=== PATIENT | male | born 1950 | race Caucasian/White ===

== ENCOUNTER 2018-07-20 11:15 | Emergency (ER) | payer MEDICARE, BC ==
[2018-07-20] MEDS ORDERED: Lidocaine 2% Jelly 5 ML Tube ONE (11:50)
[2018-07-20] MEDS ORDERED: Lidocaine 2% Jelly 5 ML Tube TOP ONE ×2 (12:01→12:17)
--- NOTE | 2018-07-20 12:17 | EDM.PDOC ---
ED HPI GENERAL MEDICAL PROBLEM - General Chief Complaint: General Stated Complaint: hemorrhoid Time Seen by Provider: 07/20/18 11:56 Source of Information: Reports: Patient History Limitations: Reports: No Limitations - History of Present Illness INITIAL COMMENTS - FREE TEXT/NARRATIVE: Morgan is a pleasant 67 year old male who presents to the ED with c/o painful hemorrhoid. He reports he first noticed it on Saturday. He does feel it has gotten larger since then. Reports that today it started to bleed and the pain has gotten worse. He reports he has been using preparation H since Saturday without relief. Denies any bloody stools. Reports his last BM was yesterday. He denies any excessive straining with stooling. Reports his bowel movements are usually very regular. Does report he occassionally will get hemorrhoids, but preparation H usually gets rid of them. Denies any other issues. Rectal Pain Score (Numeric/FACES): 8 - Related Data Allergies Allergy/AdvReac Type Severity Reaction Status Date / Time amoxicillin Allergy Rash Verified 07/20/18 11:19 Home Meds: Home Meds Aspirin [Halfprin] 81 mg PO DAILY 10/22/16 [History] Calcium Carbonate [Calcium] 600 mg PO DAILY 10/22/16 [History] Cholecalciferol (Vitamin D3) [Vitamin D] 1 tab PO DAILY 10/22/16 [History] Fluticasone Propionate 2 spray NASBOTH DAILY 10/22/16 [History] Levothyroxine Sodium 100 mcg PO DAILY 10/22/16 [History] Magnesium Oxide [Magnesium] 500 mg PO DAILY 10/22/16 [History] Multivitamin [Multivitamins] 1 tab PO DAILY 10/22/16 [History] Naproxen Sodium [Aleve] 440 mg PO DAILY PRN 10/22/16 [History] [place]-3 Fatty Acids [Fish Oil] 1,200 mg PO DAILY 10/22/16 [History] Pantoprazole Sodium 40 mg PO DAILY 10/22/16 [History] Red Yeast Rice 1,200 mg PO DAILY 10/22/16 [History] Sucralfate 1 gm PO TID 10/22/16 [History] Loratadine 10 mg PO DAILY PRN 09/24/17 [History] Hydrocortisone [Hydrocortisone 2.5% Crm] 1 gm TOP BID 7 Days #1 tube 07/20/18 [ Rx] Lidocaine 5% 35.44 gm .XX Q4H PRN #1 tube 07/20/18 [Rx] Past Medical History HEENT History: Reports: Impaired Vision Cardiovascular History: Reports: High Cholesterol Gastrointestinal History: Reports: GERD Endocrine/Metabolic History: Reports: Hypoparathyroidism - Past Surgical History HEENT Surgical History: Reports: Tonsillectomy GI Surgical History: Reports: Colonoscopy Musculoskeletal Surgical History: Reports: Other (See Below) Other Musculoskeletal Surgeries/Procedures:: plate in head Social & Family History - Family History Family Medical History: Noncontributory - Tobacco Use Smoking Status *Q: Never Smoker - Caffeine Use Caffeine Use: Reports: Coffee - Recreational Drug Use Recreational Drug Use: No ED ROS GENERAL - Review of Systems Review Of Systems: ROS reveals no pertinent complaints other than HPI. ED EXAM, GENERAL - Physical Exam Exam: See Below Exam Limited By: No Limitations General Appearance: Alert, WD/WN, No Apparent Distress Rectal (Males) Exam: Hemorrhoids (large external hemorrhoid, 1.5 cm x 3 cm, thrombosed), Tenderness (of hemorrhoid), Other (small amount of bleeding from hemorrhoid) Psychiatric: Normal Affect, Normal Mood Course - Vital Signs Last Recorded V/S: Last Vital Signs Temp 98.1 F 07/20/18 11:16 Pulse 71 07/20/18 11:16 Resp 16 07/20/18 11:16 BP 185/97 H 07/20/18 12:30 Pulse Ox 97 07/20/18 11:16 - Orders/Labs/Meds Meds: Medications Discontinued Medications Generic Name Dose Route Start Last Admin Trade Name Kaylene PRN Reason Stop Dose Admin Hydrocortisone 0 gm 07/20/18 12:30 07/20/18 12:28 Hydrocortisone 2.5% Crm TOP 1 applic BID TOMMIE Administration Lidocaine HCl 5 ml 07/20/18 12:01 07/20/18 12:02 Xylocaine 2% Jelly TOP 07/20/18 12:02 1 applic ONETIME ONE Administration Lidocaine HCl Confirm 07/20/18 11:50 07/20/18 12:03 Xylocaine 2% Jelly Administered 07/20/18 11:51 Not Given Dose 5 ml .ROUTE .STK-MED ONE Lidocaine HCl 5 ml 07/20/18 12:17 07/20/18 12:21 Xylocaine 2% Jelly TOP 07/20/18 12:18 1 applic ONETIME ONE Administration - Re-Assessments/Exams Free Text/Narrative Re-Assessment/Exam: Lidocaine applied to hemorrhoid. Patient reports some relief of pain. [place]ell, [place] [facility] [place] patient can likely be treated conservatively. If no improvement over next 5-7 days then recommends general surgery consult from primary care provider. Departure - Departure Time of Disposition: 12:30 Disposition: Home, Self-Care 01 Condition: Good Clinical Impression: External hemorrhoid, thrombosed - Discharge Information *PRESCRIPTION DRUG MONITORING PROGRAM REVIEWED*: Not Applicable *COPY OF PRESCRIPTION DRUG MONITORING REPORT IN PATIENT VELIA: Not Applicable Prescriptions: Hydrocortisone [Hydrocortisone 2.5% Crm] 1 gm TOP BID 7 Days #1 tube Lidocaine 5% 35.44 gm .XX Q4H PRN #1 tube PRN Reason: Pain Instructions: High-Fiber Diet, Hemorrhoids, [id number] Referrals: Shwetha White PA [Primary Care Provider] - Forms: ED Department Discharge Additional Instructions: Sitz bath twice daily for comfort Apply small amount of Lidocaine gel to affected area every 4 hours as needed for pain Apply small amount of Hydrocortisone cream to affected area twice daily for 7 days Stool softeners daily to prevent constipation Increase fiber intake. Make sure you are drinking adequate amount of water daily. 6-8 glasses of water daily. Avoid straining with bowel movements Moist gentle cleaning following bowel movements Follow up with PCP in 5-7 days if symptoms do not improve, sooner if worsens
[2018-07-20] MEDS ORDERED: Hydrocortisone 2.5% Crm 30 GM Tube TOP SCH (12:30)
== END 2018-07-20 12:41 | disposition home or self-care (01) ==
LOC: CC.ED 11:15
DX: K64.5 Perianal venous thrombosis (principal); K21.9 Gastro-esophageal reflux disease without esophagitis; E20.9 Hypoparathyroidism, unspecified; E78.00 Pure hypercholesterolemia, unspecified; Z88.1 Allergy status to other antibiotic agents; Z79.899 Other long term (current) drug therapy
CPT/HCPCS: 99282; A9270; 99283

== ENCOUNTER 2018-10-24 13:11 | Emergency (ER) | payer MEDICARE, BC ==
[2018-10-24] MEDS: Lidocaine 1% 20 ML MDV ONE (13:49)
[2018-10-24] MEDS: Lidocaine 1% 20 ML MDV INJECT ONE (13:50)
[2018-10-24] MEDS: Bacitracin/Neomycin/Polymyxin B Oint 0.9 GM U/D Packet TOP ONE (14:10)
--- NOTE | 2018-10-24 14:19 | EDM.PDOC ---
ED HPI GENERAL MEDICAL PROBLEM - General Chief Complaint: Laceration Stated Complaint: RT HAND CUT Time Seen by Provider: 10/24/18 13:43 Source of Information: Reports: Patient History Limitations: Reports: No Limitations - History of Present Illness INITIAL COMMENTS - FREE TEXT/NARRATIVE: Morgan is a 68 year old male who presents to the ED with c/o a laceration to his right index finger. Reports he was at [employer] and tried to cut don tag off an item with his knife when it slipped and cut his finger. REports he has full function of finger. Mild numbness surrounding laceration. Reports he was unable to stop the bleeding and figured he needed sutures. No other complaints. Onset: Today, Sudden Onset Date: 10/24/18 Onset Time: 13:00 Duration: Constant Location: Reports: Upper Extremity, Right Quality: Reports: Burning, Sharp Severity: Mild Improves with: Reports: None Worsens with: Reports: Movement Associated Symptoms: Reports: No Other Symptoms Right Finger-Index Pain Score (Numeric/FACES): 2 - Related Data Allergies Allergy/AdvReac Type Severity Reaction Status Date / Time amoxicillin Allergy Rash Verified 10/24/18 13:26 Home Meds: Home Meds Aspirin [Halfprin] 81 mg PO DAILY 10/22/16 [History] Calcium Carbonate [Calcium] 600 mg PO DAILY 10/22/16 [History] Cholecalciferol (Vitamin D3) [Vitamin D] 1 tab PO DAILY 10/22/16 [History] Fluticasone Propionate 2 spray NASBOTH DAILY 10/22/16 [History] Levothyroxine Sodium 100 mcg PO DAILY 10/22/16 [History] Magnesium Oxide [Magnesium] 500 mg PO DAILY 10/22/16 [History] Multivitamin [Multivitamins] 1 tab PO DAILY 10/22/16 [History] Naproxen Sodium [Aleve] 440 mg PO DAILY PRN 10/22/16 [History] [place]-3 Fatty Acids [Fish Oil] 1,200 mg PO DAILY 10/22/16 [History] Pantoprazole Sodium 40 mg PO DAILY 10/22/16 [History] Red Yeast Rice 1,200 mg PO DAILY 10/22/16 [History] Sucralfate 1 gm PO TID 10/22/16 [History] Loratadine 10 mg PO DAILY PRN 09/24/17 [History] Past Medical History HEENT History: Reports: Impaired Vision Cardiovascular History: Reports: High Cholesterol Gastrointestinal History: Reports: GERD Endocrine/Metabolic History: Reports: Hypoparathyroidism - Past Surgical History HEENT Surgical History: Reports: Tonsillectomy GI Surgical History: Reports: Colonoscopy Musculoskeletal Surgical History: Reports: Other (See Below) Other Musculoskeletal Surgeries/Procedures:: plate in head Social & Family History - Family History Family Medical History: Noncontributory - Caffeine Use Caffeine Use: Reports: Coffee ED ROS GENERAL - Review of Systems Review Of Systems: ROS reveals no pertinent complaints other than HPI. ED EXAM, SKIN/RASH Exam: See Below Exam Limited By: No Limitations General Appearance: Alert, WD/WN, No Apparent Distress Peripheral Pulses: 2+: Radial (R) Extremities: Other (2 cm superficial laceration to middle phalanx of right index finger, clean, bleeding controlled) Psychiatric: Normal Affect, Normal Mood Skin: Wound/Incision (2 cm laceration to right middle phalanx of index finger) ED SKIN PROCEDURES - Laceration/Wound Repair Right Digit - 2nd (Index) Lac/Wound length In cm: 2 Appearance: Superficial, Linear, Clean Distal NVT: Neuro & Vascular Intact, No Tendon Injury Anesthetic Type: Local Local Anesthesia - Lidocaine (Xylocaine): 1% Plain Local Anesthetic Volume: 3cc Skin Prep: Providone-Iodine (Betadine) Exploration/Debridement/Repair: Wound Explored, No Foreign Material Found Closed with: Sutures Suture Size: 4-0 # of Sutures: 4 Suture Type: Nylon, Interrupted, Simple Sterile Dressing Applied: Nurse Tetanus Status Addressed: Yes (up to date) Complications: No Progress/Comments: Patient tolerated well. CMS intact following suture closure. Course - Vital Signs Last Recorded V/S: Last Vital Signs Temp 97.9 F 10/24/18 13:20 Pulse 74 10/24/18 13:20 Resp 20 10/24/18 13:20 BP 148/78 H 10/24/18 13:20 Pulse Ox 99 10/24/18 13:20 - Orders/Labs/Meds Meds: Medications Discontinued Medications Generic Name Dose Route Start Last Admin Trade Name Freq PRN Reason Stop Dose Admin Lidocaine HCl Confirm 10/24/18 13:35 10/24/18 13:49 Xylocaine 1% Administered 10/24/18 13:36 Not Given Dose 20 ml .ROUTE .STK-MED ONE Lidocaine HCl 20 ml 10/24/18 13:49 10/24/18 13:50 Xylocaine 1% INJECT 10/24/18 13:50 20 ml ONETIME ONE Administration Neomycin/Polymyxin/Bacitracin 1 each 10/24/18 14:08 10/24/18 14:10 Triple Antibiotic Oint TOP 10/24/18 14:09 1 each ONETIME ONE Administration Departure - Departure Time of Disposition: 14:17 Disposition: Home, Self-Care 01 Condition: Good Clinical Impression: Laceration of finger of right hand Qualifiers: Encounter type: initial encounter Finger: index finger Damage to nail status: without damage Foreign body presence: without foreign body Qualified Code(s): S61.210A - Laceration without foreign body of right index finger without damage to nail, initial encounter - Discharge Information *PRESCRIPTION DRUG MONITORING PROGRAM REVIEWED*: Not Applicable *COPY OF PRESCRIPTION DRUG MONITORING REPORT IN PATIENT VELIA: Not Applicable Instructions: Laceration Care, Adult, [id number] Referrals: Koko Santoyo MD [Primary Care Provider] - Forms: ED Department Discharge Additional Instructions: 1) Keep area clean and dry 2) Keep covered with bandaid upon dressing remove. Neosporin daily with bandaid change. 3) Tylenol or ibuprofen as needed for pain 4) Monitor for s/s of infection (redness, purulent drainage, warmth) 5) Follow up for suture removal in 10 days
== END 2018-10-24 14:25 | disposition home or self-care (01) ==
LOC: SUPCPDRO 13:11 → CC.ED 13:11
DX: S61.210A Laceration without foreign body of right index finger without damage to nail, initial encounter (principal); W26.0XXA Contact with knife, initial encounter; Y93.89 Activity, other specified; Y92.512 Supermarket, store or market as the place of occurrence of the external cause; E78.00 Pure hypercholesterolemia, unspecified; K21.9 Gastro-esophageal reflux disease without esophagitis; E20.9 Hypoparathyroidism, unspecified; Z88.1 Allergy status to other antibiotic agents; Z79.82 Long term (current) use of aspirin; Z79.899 Other long term (current) drug therapy
CPT/HCPCS: 12001; 99282; 99283

== ENCOUNTER 2018-11-02 14:18 | Emergency (ER) | payer MEDICARE, BC ==
[2018-11-02] MEDS ORDERED: Ibuprofen 200 MG Tab PO ONE (14:43)
--- NOTE | 2018-11-02 14:43 | EDM.PDOC ---
ED HPI GENERAL MEDICAL PROBLEM - General Chief Complaint: General Stated Complaint: SCHAFER, chills, sore throat, body aches Time Seen by Provider: 11/02/18 14:25 Source of Information: Reports: Patient - History of Present Illness INITIAL COMMENTS - FREE TEXT/NARRATIVE: patient is a 68 year old male who has cough nonproductive/ congestion / and body aches/ no fever/ no chills no illcontacts Onset: Today, Gradual Onset Date: 10/30/18 Onset Time: 07:00 Duration: Getting Worse Location: Reports: Generalized Quality: Reports: Ache, Dull Severity: Mild Improves with: Reports: None Worsens with: Reports: None Throat Pain Score (Numeric/FACES): 8 Headache Pain Score (Numeric/FACES): 5 - Related Data Allergies Allergy/AdvReac Type Severity Reaction Status Date / Time amoxicillin Allergy Rash Verified 11/02/18 14:21 Home Meds: Home Meds Aspirin [Halfprin] 81 mg PO DAILY 10/22/16 [History] Calcium Carbonate [Calcium] 600 mg PO DAILY 10/22/16 [History] Cholecalciferol (Vitamin D3) [Vitamin D] 1 tab PO DAILY 10/22/16 [History] Fluticasone Propionate 2 spray NASBOTH DAILY 10/22/16 [History] Levothyroxine Sodium 100 mcg PO DAILY 10/22/16 [History] Magnesium Oxide [Magnesium] 500 mg PO DAILY 10/22/16 [History] Multivitamin [Multivitamins] 1 tab PO DAILY 10/22/16 [History] Naproxen Sodium [Aleve] 440 mg PO DAILY PRN 10/22/16 [History] [place]-3 Fatty Acids [Fish Oil] 1,200 mg PO DAILY 10/22/16 [History] Pantoprazole Sodium 40 mg PO DAILY 10/22/16 [History] Red Yeast Rice 1,200 mg PO DAILY 10/22/16 [History] Sucralfate 1 gm PO TID 10/22/16 [History] Loratadine 10 mg PO DAILY PRN 09/24/17 [History] D-Methorphan Hb/P-Epd HCl/Bpm [Bromfed DM Cough] 7.5 ml PO Q6H PRN #120 syrup [Rx] Tamsulosin HCl [Flomax] 0.4 mg PO DAILY 11/02/18 [History] predniSONE [Prednisone] 20 mg PO DAILY 5 Days #5 tablet 11/02/18 [Rx] Past Medical History HEENT History: Reports: Impaired Vision Cardiovascular History: Reports: High Cholesterol Gastrointestinal History: Reports: GERD Endocrine/Metabolic History: Reports: Hypoparathyroidism - Past Surgical History HEENT Surgical History: Reports: Tonsillectomy GI Surgical History: Reports: Colonoscopy Musculoskeletal Surgical History: Reports: Other (See Below) Other Musculoskeletal Surgeries/Procedures:: plate in head Social & Family History - Family History Family Medical History: Noncontributory - Tobacco Use Smoking Status *Q: Current Every Day Smoker Years of Tobacco use: 20 Packs/Tins Daily: 0.2 - Caffeine Use Caffeine Use: Reports: Coffee ED ROS GENERAL - Review of Systems Review Of Systems: See Below Constitutional: Reports: Fever, Malaise HEENT: Reports: Throat Pain Respiratory: Reports: Cough Cardiovascular: Reports: No Symptoms Musculoskeletal: Reports: No Symptoms Skin: Reports: No Symptoms Neurological: Reports: No Symptoms ED EXAM, GENERAL - Physical Exam Exam: See Below Exam Limited By: No Limitations General Appearance: Alert, WD/WN Ears: Normal External Exam, Normal Canal, Normal TMs Nose: Normal Inspection Throat/Mouth: Normal Inspection Head: Atraumatic, Normocephalic Neck: Normal Inspection, Supple Respiratory/Chest: No Respiratory Distress, Lungs Clear, Normal Breath Sounds, Chest Non-Tender Cardiovascular: Normal Peripheral Pulses, Regular Rate, Rhythm, No Edema, No JVD GI/Abdominal: Normal Bowel Sounds, Soft, Non-Tender Extremities: Normal Inspection, Normal Range of Motion, Non-Tender, No Pedal Edema Neurological: Alert, Oriented, CN II-XII Intact, Normal Cognition, Normal Gait Psychiatric: Normal Affect, Normal Mood Skin Exam: Warm, Dry, Intact, Normal Color, No Rash Course - Vital Signs Last Recorded V/S: Last Vital Signs Temp 100.9 F H 11/02/18 15:02 Pulse 95 11/02/18 14:20 Resp 18 11/02/18 14:20 BP 133/65 11/02/18 14:20 Pulse Ox 98 11/02/18 14:20 - Orders/Labs/Meds Orders: Active Orders 24 hr Category Date Time Status predniSONE Med 11/03/18 14:37 Once 60 mg PO ONETIME ONE Medication Orders Prednisone (Prednisone) 60 mg PO ONETIME ONE Stop: 11/03/18 14:38 Last Admin: 11/02/18 15:02 Dose: 60 mg Labs: influenza negative Meds: Medications Generic Name Dose Route Start Last Admin Trade Name Freq PRN Reason Stop Dose Admin Prednisone 60 mg 11/03/18 14:37 11/02/18 15:02 Prednisone PO 11/03/18 14:38 60 mg ONETIME ONE Administration Discontinued Medications Generic Name Dose Route Start Last Admin Trade Name Freq PRN Reason Stop Dose Admin Ibuprofen 800 mg 11/02/18 14:43 11/02/18 15:02 Motrin PO 11/02/18 14:44 800 mg ONETIME ONE Administration Prednisone Confirm 11/02/18 15:04 11/02/18 15:04 Prednisone Administered 11/02/18 15:05 Not Given Dose 60 mg .ROUTE .STK-MED ONE - Re-Assessments/Exams Free Text/Narrative Re-Assessment/Exam: 11/02/18 15:11 patietn told of negative flu/ given prednisone and told to use bromfed. Departure - Departure Time of Disposition: 15:21 Disposition: Home, Self-Care 01 Condition: Good Clinical Impression: Viral syndrome - Discharge Information *PRESCRIPTION DRUG MONITORING PROGRAM REVIEWED*: No *COPY OF PRESCRIPTION DRUG MONITORING REPORT IN PATIENT VELIA: No Prescriptions: D-Methorphan Hb/P-Epd HCl/Bpm [Bromfed DM Cough] 7.5 ml PO Q6H PRN #120 syrup PRN Reason: Cough predniSONE [Prednisone] 20 mg PO DAILY 5 Days #5 tablet Referrals: Isaiah Colmenares MD [ED Physician] - Forms: ED Department Discharge Additional Instructions: Take prednisone and Bromfed as directed RX was sent to [facility] in [facility] on [address] [place] [address]. - My Orders Last 24 Hours: My Active Orders 11/03/18 14:37 predniSONE 60 mg PO ONETIME ONE - Assessment/Plan Last 24 Hours: My Active Orders 11/03/18 14:37 predniSONE 60 mg PO ONETIME ONE Assessment:: viral syndrome fever Plan: use prednisone and bromfed and see pcp if no improvement in 3 days.
[2018-11-02] MEDS ORDERED: predniSONE 20 MG Tab ONE (15:04)
[2018-11-03] MEDS ORDERED: predniSONE 20 MG Tab PO ONE (14:37)
== END 2018-11-02 15:30 | disposition home or self-care (01) ==
LOC: CC.ED 14:18
DX: B34.9 Viral infection, unspecified (principal); E78.00 Pure hypercholesterolemia, unspecified; K21.9 Gastro-esophageal reflux disease without esophagitis; F17.210 Nicotine dependence, cigarettes, uncomplicated; Z88.1 Allergy status to other antibiotic agents; Z79.899 Other long term (current) drug therapy; Z79.82 Long term (current) use of aspirin
CPT/HCPCS: 87804; 99283; 99284; A9270-GY